=== PATIENT | female | born 1970 | race African-American/Black ===

== ENCOUNTER 2021-01-02 17:31 | Emergency (ER) | payer BC ==
[~2021-01-02] VITALS: Ht 165.1 cm; Wt 98.3 kg
[2021-01-02 17:45] VITALS: BP 165/93
[2021-01-02] MEDS ORDERED: ACETAMINOPHEN 500 MG TABLET PO ONE (18:45)
--- NOTE | 2021-01-02 19:33 | RAD ---
EXAM: XR ELBOW COMPLETE_LEFT 3+VIEWS, XR LT WRIST 3VIEWS 01/02/2021 7:03 PM CLINICAL INDICATION: Fall COMPARISON: None TECHNIQUE: 3 views of the left elbow, 3 views of the left wrist FINDINGS: Left elbow: No acute fracture. Alignment is normal. There is no joint effusion or soft tissue abnorma lity. Left wrist: No acute fracture. Alignment is normal. Joint spaces are maintained. There is no soft tis edil abnormality. IMPRESSION: No acute osseous abnormality of the left elbow or wrist. Electronically signed by: Lesley Chilel MD (01/02/2021 7:31 PM) [id number]
--- NOTE | 2021-01-02 19:33 | RAD ---
LEFT SHOULDER , 3 VIEWS Clinical Indication: Reason: fall, pain. Comparison: None. Findings: There is no acute fracture or dislocation. The acromioclavicular and glenohumeral joints are intact. The visualized lung is clear. There is no evidence of a displaced rib fracture. There is no soft tiss ue abnormality. IMPRESSION: No acute fracture or dislocation. Electronically signed by: oDe Acosta MD (01/02/2021 7:31 PM) [place]
--- NOTE | 2021-01-02 19:51 | PHYS DOC ---
Past History Past Medical History: Hypothyroid Past Surgical History: Hysterectomy Additional Past Surgical Histo: THYROIDECTOMY Alcohol Use: None Adult General Chief Complaint Chief Complaint: MECHANICAL FALL HPI HPI Patient is a 50-year-old female that fell in the parking lot at [employer] just before coming to the emergency department on an outstretched left hand. Endorsing left shoulder and wrist pain, 6 out of 10, dull and achy in nature. Denies any other injuries. Review of Systems Review of Systems Review of systems otherwise unremarkable except noted in HPI Current Medications Current Medications Current Medications Medications (Trade) Dose Ordered Sig/Tenisha Start Time Stop Time Status Last Admin Dose Admin Acetaminophen (Tylenol) 1,000 mg 1X ONCE 01/02/21 18:45 01/02/21 18:49 DC 01/02/21 18:56 1,000 MG Allergies Allergies Allergies Coded Allergies Type Severity Reaction Last Updated Verified Sulfa (Sulfonamide Antibiotics) Allergy Unknown 01/02/21 Yes Physical Exam Physical Exam Constitutional: Well developed, well nourished, no acute distress, non-toxic appearance. [] Neck: Normal range of motion, no tenderness, supple, no stridor. [] Cardiovascular:Heart rate regular rhythm, no murmur [] Skin: Warm, dry, no erythema, no rash. [] Back: No tenderness, Extremities: Patient with left shoulder and wrist tenderness on palpation with normal range of motion and normal neurovascular exam. Neurologic: Alert and oriented X 3, normal motor function, normal sensory function, no focal deficits noted. [] Psychologic: Affect normal, judgement normal, mood normal. [] Current Patient Data Vital Signs Vital Signs Date Time Temp Pulse Resp B/P (MAP) Pulse Ox O2 Delivery O2 Flow Rate FiO2 01/02/21 17:45 98.5 87 18 165/93 (117) 99 Room Air EKG EKG [] Radiology/Procedures Radiology/Procedures []FINDINGS: Left elbow: No acute fracture. Alignment is normal. There is no joint effusion or soft tissue abnormality. Left wrist: No acute fracture. Alignment is normal. Joint spaces are maintained. There is no soft tissue abnormality. IMPRESSION: No acute osseous abnormality of the left elbow or wrist. Electronically signed by: Lesley Chilel MD (01/02/2021 7:31 PM) [id number] Findings: There is no acute fracture or dislocation. The acromioclavicular and glenohumeral joints are intact. The visualized lung is clear. There is no evidence of a displaced rib fracture. There is no soft tissue abnormality. IMPRESSION: No acute fracture or dislocation. Electronically signed by: Doe Acosta MD (01/02/2021 7:31 PM) [facility] Heart Score Risk Factors: Risk Factors: DM, Current or recent (<one month) smoker, HTN, HLP, family history of CAD, obesity. Risk Scores: Risk Factors: DM, Current or recent (<one month) smoker, HTN, HLP, family history of CAD, obesity. Course & Med Decision Making Course & Med Decision Making Patient is a 50-year-old female who presents with left shoulder and wrist pain after falling on the ice Vital signs not concerning. Physical exam noted above. Patient given Tylenol and ice pack Imaging with no acute osseous abnormalities. Advised on pain control at home. Advised to follow-up with primary care physician. Advised to come back to the ED with new or concerning symptoms. Patient grateful, verbalized understanding and agreed with plan of discharge [] Dragon Disclaimer Dragon Disclaimer This electronic medical record was generated, in whole or in part, using a voice recognition dictation system. Departure Departure: Disposition: 01 DC HOME SELF CARE/HOMELESS Condition: GOOD Referrals: PAULINA SLOAN MD (PCP) Patient Instructions: RICE - Routine Care for Injuries Additional Instructions: Please read the attached information. Please follow-up with your primary care physician for [facility] to set up a post ER follow-up visit as needed. Use Tylenol, ibuprofen and ice at home as needed for pain control as long as you are not allergic to these. Please come back to the ED with new or concerning symptoms. JAH TEMPLE MD Jan 02, 2021 19:51
== END 2021-01-02 20:09 | disposition home or self-care (01) ==
LOC: ER 17:31
DX: M25.512 Pain in left shoulder (principal); M25.532 Pain in left wrist; E03.9 Hypothyroidism, unspecified; Z88.2 Allergy status to sulfonamides; W18.39XA Other fall on same level, initial encounter; Y93.89 Activity, other specified; Y92.481 Parking lot as the place of occurrence of the external cause; Y99.8 Other external cause status
CPT/HCPCS: 73030; 73080; 73110; 99284